=== PATIENT | female | born 1960 | race Caucasian/White ===

== ENCOUNTER 2024-04-20 05:53 | Day surgery (SDC) | payer OTHER ==
[~2024-04-20 05:53] MED LIST: LACTATED RINGERS 1,000 ML IV SCH; LIDOCAINE 1% (10MG/ML) FOR IV START INTRADERMA PRN
[2024-04-20 06:17] VITALS: TEMP 97.7
[2024-04-20] MEDS: IV FLUID CONTINUATION 1,000 ML IV ONE (06:22)
[2024-04-20] MEDS ORDERED: LIDOCAINE 1% INJ 10MG/ML (20 ML MDV) ONE (06:59)
[2024-04-20] MEDS ORDERED: PROPOFOL 10 MG/ML 20 ML VIAL IV ONE (06:59)
--- NOTE | 2024-04-20 07:25 | P.PCN ---
Date of Procedure: 04/20/24 Procedure(s) Performed: Brief history: Patient is a pleasant 3-year-old white female scheduled for an elective upper endoscopy as well as colonoscopy as a part of evaluation of send history of GERD and history of Crohn's disease. She was diagnosed with Crohn's ileocolitis at age 25 and status post small bowel resection at age 26 and 48. She developed recurrent Crohn's disease ileocolic anastomosis in 2020 and since then has been maintained on Humira every 2 weeks. Recently has been having right lower quadrant abdominal pain on a daily basis. Has 4-5 bowel movements daily but no bleeding Procedure performed: Esophagogastroduodenoscopy with biopsy Colonoscopy with biopsy Preoperative diagnosis: Longstanding history of GERD History of Crohn's disease, intermittent right lower quadrant abdominal pain Anesthesia: MAC Procedure: After informed consent was obtained from the patient was brought into the endoscopy unit and IV sedation was administered by anesthesia under continuous monitoring. Initially upper endoscopy was done. The Olympus GF 160 video endoscope was inserted inserted into the mouth and esophagus intubated without any difficulty and was gradually advanced into the stomach and duodenum and carefully examined. The bulb and second part of the duodenum appeared normal. The scope was then withdrawn into the stomach adequately insufflated with air and upon careful examination the antrum patchy areas of erythema consistent with gastritis and biopsies were done from this area. Body, cardia and fundus appeared normal. The scope was then withdrawn into the esophagus. The GE junction was located at 40 cm to the incisors. It appeared regular with no erythema erosions or ulcerations. Rest of the esophagus appeared normal. Biopsies were done from the distal esophagus. Patient tolerated the procedure well. At this time the patient continued to remain sedation. Initial digital rectal examination was normal. Olympus CF 160 video colonoscope was then inserted into the rectum and gradually advanced to the right colon without any difficulty. Careful examination was performed as the scope was gradually being withdrawn. The prep was excellent. The ileocolic anastomosis appeared narrowed but there were no ulcerations or erosions identified. Biopsies were done from this area. Mucosa of the, transverse colon, descending colon, sigmoid colon and rectum appeared normal. Retroflexion was performed in the rectum and no lesions were noted. Patient tolerated the procedure well. Impression: 1. Upper endoscopy revealed mild gastritis but no evidence of esophagitis or Ramírez's esophagus 2. Colonoscopy revealed narrowing of the ileocolic anastomosis but no erosions or ulcerations noted. The entire colon appeared normal Recommendations: Findings of this examination were discussed with the patient as well as her family. She was advised to follow-up with the biopsy results. Continue with adalimumab 40 mg every 2 weeks and follow-up in the office in 3 months.
[2024-04-20 07:48] VITALS: BP 113/72; PULSE 86; RESP 17
== END 2024-04-20 08:15 | disposition home or self-care (01) ==
LOC: ORWHC2ENDO 05:53
PROVIDERS: ATTEND Internal Medicine Gastroenterology
DX: K29.50 Unspecified chronic gastritis without bleeding (principal); K21.00 Gastro-esophageal reflux disease with esophagitis, without bleeding; K50.80 Crohn's disease of both small and large intestine without complications; Z90.49 Acquired absence of other specified parts of digestive tract; Z91.040 Latex allergy status; Z88.6 Allergy status to analgesic agent; Z79.899 Other long term (current) drug therapy; Z98.890 Other specified postprocedural states
CPT/HCPCS: 45380; 43239; J2003; J2704; 88305